=== PATIENT | male | born 1945 | race Caucasian/White ===

== ENCOUNTER 2017-02-24 10:38 | Outpatient (CLI) | payer MEDICARE ==
[2017-02-24 12:40] LABS: #Basophils 0.1 thou/uL (0.0-0.2); #Eosinphils 0.2 thou/uL (0.0-0.7); #Lymphocytes 1.6 thou/uL (1.20-3.40); #Monocytes 0.7 thou/uL (0.11-0.59); #Neutrophils 4.1 thou/uL (1.40-6.50); %Eosinophils 3.2 % (0.0-10.0); %Lymphocytes 24.2 % (21.0-51.0); %Monocytes 10.9 % (0.0-10.0); Hematocrit 48.3 % (42.0-52.0); Mean Platelet Volume 7.3 fL (7.4-10.4); Red Blood Cell (RBC) Count 4.85 mill/uL (4.70-6.10); White Blood Cell (WBC) Count 6.8 thou/uL (4.8-10.8)
[2017-02-24 12:45] LABS: PTT 26.8 SEC (22.9-36.1)
[2017-02-24 12:55] LABS: Prothrombin Time 13.4 SEC (12.0-14.7)
[2017-02-24 13:03] LABS: Anion Gap 12 mmol/L (10-20); BUN (Urea Nitrogen) 17 mg/dL (8.4-25.7); Calc. Creatinine Clearance 0 mL/min (70-130); Calcium 9.2 mg/dL (7.8-10.44); Carbon Dioxide 26 mmol/L (23-31); Chloride 107 mmol/L (98-107); Estimated GFR-MDRD 82
== END 2017-02-24 10:39 | disposition home or self-care (01) ==
LOC: LABBT 10:38
PROVIDERS: ATTEND Surgery
DX: Z01.818 Encounter for other preprocedural examination (principal); M54.16 Radiculopathy, lumbar region; M48.062 Spinal stenosis, lumbar region with neurogenic claudication
CPT/HCPCS: 80048; 85025; 85610; 85730; 93005; 93010

== ENCOUNTER 2017-02-27 11:09 | Day surgery (SDC) | payer MEDICARE ==
[2017-02-24 11:04] VITALS: BMI 36.2
[2017-02-27] MEDS ORDERED: Thrombin 5000 UNITS/5 ML VIAL ONE (12:15)
[2017-02-27] MEDS ORDERED: Bacitracin Zinc Ointment 30 gm TUBE ONE (12:15)
[2017-02-27] MEDS ORDERED: Sodium Chloride 0.9% 10 ML ONE (12:15)
[2017-02-27] MEDS ORDERED: CEFAZOLIN/Water 2 GM/20 ML SYRINGE ONE (12:48)
[2017-02-27] MEDS ORDERED: Fentanyl 100 MCG/2 ML VIAL ONE ×3 (12:51→17:11)
[2017-02-27] MEDS ORDERED: Promethazine HCl 25 MG/ML VIAL SLOW IVP PRN (16:02)
[2017-02-27] MEDS ORDERED: Meperidine HCl/PF 25 MG/ML VIAL SLOW IVP PRN (16:02)
[2017-02-27] MEDS ORDERED: Morphine Sulfate 2 MG/ML SYRINGE SLOW IVP PRN (16:02)
[2017-02-27] MEDS ORDERED: HYDROmorphone 2 MG/ML VIAL SLOW IVP PRN (16:02)
[2017-02-27] MEDS ORDERED: Dexamethasone 20 MG/5 ML VIAL ONE (16:45)
[2017-02-27] MEDS ORDERED: Succinylcholine Chloride 20 MG/ML 10 ml SYRINGE FS ONE (16:45)
[2017-02-27] MEDS ORDERED: Metoclopramide HCl 10 MG/2 ML VIAL ONE (16:45)
[2017-02-27] MEDS ORDERED: Lidocaine 1% PF 5 ML VIAL ONE (16:45)
[2017-02-27] MEDS ORDERED: ePHEDrine/0.9% NaCl/PF SYRINGE 50 mg/10 ml ONE (16:45)
[2017-02-27] MEDS ORDERED: PHENYLEPHRINE-NS 100 MCG/ML 10 ML SYRINGE ONE (16:45)
[2017-02-27] MEDS ORDERED: Glycopyrrolate 0.2 MG/ML 5 ML SYRINGE ONE (16:45)
[2017-02-27] MEDS ORDERED: Propofol 200 MG/20 ML VIAL ONE (16:45)
[2017-02-27] MEDS ORDERED: Ondansetron HCl/PF 4 MG/2 ML Vial ONE (16:45)
[2017-02-27] MEDS ORDERED: Ondansetron HCl/PF 4 MG/2 ML Vial IVP PRN (17:06)
[2017-02-27] MEDS ORDERED: Mag-Al 1200 mg/1200 mg/30 ML UDCUP PO PRN (17:06)
[2017-02-27] MEDS ORDERED: Bisacodyl 10 MG SUPP PR PRN (17:06)
[2017-02-27] MEDS ORDERED: Morphine 4 MG/ML VIAL SLOW IVP PRN (17:06)
[2017-02-27] MEDS ORDERED: Milk Of Magnesia 30 ML UDCUP PO PRN (17:06)
[2017-02-27] MEDS ORDERED: tiZANidine HCl 4 MG TAB PO PRN (17:06)
[2017-02-27] MEDS ORDERED: Acetaminophen 325 MG TAB PO PRN (17:06)
[2017-02-27] MEDS ORDERED: Fleet Enema 133 ML BOT PR PRN (17:06)
[2017-02-27] MEDS ORDERED: Acetaminophen/Codeine 30-300mg Tablet PO PRN (17:06)
[2017-02-27] MEDS ORDERED: HYDROcodone/Acetaminophen 7.5/325 mg Tablet PO PRN (17:06)
[2017-02-27] MEDS ORDERED: Promethazine HCl 25 MG/ML VIAL IM PRN (17:06)
[2017-02-27] MEDS ORDERED: diphenhydrAMINE 25 MG CAP PO PRN (17:08)
[2017-02-27] MEDS: Sodium Chloride 0.9% 1,000 ML IV SCH (19:10)
[2017-02-27] MEDS: guaiFENesin/DM ER PO SCH (20:55)
[2017-02-27] MEDS: Terazosin HCl 5 MG CAP PO SCH (20:55)
[2017-02-27] MEDS: CEFAZOLIN/Water 2 GM/20 ML SYRINGE SLOW IVP SCH (20:55)
[2017-02-27] MEDS ORDERED: CLINDAMYCIN PHOSPHATE 1% TOP SCH (21:00)
[2017-02-28] MEDS: CEFAZOLIN/Water 2 GM/20 ML SYRINGE SLOW IVP SCH (03:46)
[2017-02-28] MEDS: traMADol HCl 50 MG TAB PO PRN ×2 (03:55→10:59)
[2017-02-28] MEDS: Sodium Chloride 0.9% 1,000 ML IV SCH (04:49)
[2017-02-28] MEDS: guaiFENesin/DM ER PO SCH (08:05)
[2017-02-28] MEDS: Terazosin HCl 5 MG CAP PO SCH (08:05)
[2017-02-28 08:40] VITALS: BP 134/71; TEMP 98.9
[2017-02-28] MEDS ORDERED: Pravastatin Sodium 40 MG TAB PO SCH (09:00)
[2017-02-28] MEDS ORDERED: Metoprolol Tartrate 50 MG TAB PO SCH (09:00)
[2017-02-28] MEDS ORDERED: Ubidecarenone 50 MG CAP PO SCH (09:00)
[2017-02-28] MEDS ORDERED: Multivit, Therapeutic 1 TAB PO SCH (09:00)
--- NOTE | 2017-02-28 09:23 | PRG ---
DATE OF SERVICE: 02/28/2017 He is postoperative day 1 from L3-L4 synovial cystectomy and L4-S1 laminectomies, partial facetectomi es and foraminotomies with L4-S1 nerve root. He is doing very well, no evidence of leg pain. Good s trength in his lower extremities. He is mobilizing. We will plan to dismiss today. We went over alfredo th intra and postoperative issues.
--- NOTE | 2017-02-28 10:16 | OP ---
DATE OF PROCEDURE: 02/27/2017 OR: OR #12 WOUND TYPE: Type 1 wound. SURGEON: Bartolo Jeffery M.D. OPERATIONS MANAGER: Santiago Mccain PA-C PREPROCEDURE DIAGNOSIS: L3-S1 stenosis with low back and bilateral leg pain. POSTPROCEDURE DIAGNOSES: Multilevel lumbar stenosis with left-sided L3-L4 synovial cyst not quite ev ident on preoperative MRI. PROCEDURE: 1. L3-L4 synovial cystectomy for decompression at the L3-L4 segment. 2. L4-L5 laminectomy, partial facetectomy, and foraminotomies over the L4-L5 nerve roots. 3. L5-S1 laminectomy, partial facetectomy, and foraminotomies over the L5 and S1 nerve roots. DESCRIPTION OF PROCEDURE: After informed consent was obtained from the patient, the patient brought to OR 12. Proper patient pause and identification was carried out. He was positioned prone on the o perating table and all appropriate points were padded. We identified the L3 through S1 dorsal spines . A linear berenice was made over this region. This area was sterilely cleansed, prepared, and draped. Proper patient pause and identification was carried out. The wound was then opened with a combinati on of sharp, monopolar and blunt dissection, the L3-L4, L5-S1 dorsal spines and lamina were exposed. We then performed an L3-S1 laminectomy and at the L3-L4 segment identified a left-sided synovial cys t that was quite large and emanating off of the left L3-L4 facet joint. This was not entirely clear on a preoperative MRI, but in hindsight, perhaps more evident. I gently dissected the left L3-L4 syn ovial cyst which was quite compressive off of the dura. There was no spinal fluid leak. We achieved excellent decompression of the L3, L4 segment. We then turned our attention to the L4-S1 segments w ith laminectomies and partial facetectomies and foraminotomies over the L4, L5, and S1 nerve roots an d the common dural tube. We had excellent decompression of the common dural tube and the nerve roots . Hemostasis was maximized throughout. The wound was then copiously irrigated and closed in anatomi c layers following the sprinkling of vancomycin powder. The patient then emerged from anesthesia.
--- NOTE | 2017-04-03 14:36 | HP ---
HISTORY OF PRESENT ILLNESS: Mr. Arroyo is a very pleasant 72-year-old gentleman, multilevel lumbar s tenosis with low back and leg pain. He is to be admitted for lumbar decompression by Daxa Guthrie. Following his surgery, as long as he is medically and surgically stable, he will be dismissed. DIAGNOSIS: Low back and leg pain with lumbar stenosis.
== END 2017-02-28 11:58 | disposition home or self-care (01) ==
LOC: SDC 11:09 → SURG B 17:06 → SDC 02-28 11:58
PROVIDERS: ATTEND Surgery
PROC: 00NY0ZZ Release Lumbar Spinal Cord, Open Approach (ICD-10-PCS; principal; 2017-02-27)
DX: M48.062 Spinal stenosis, lumbar region with neurogenic claudication (principal); M54.16 Radiculopathy, lumbar region; I10 Essential (primary) hypertension; E78.5 Hyperlipidemia, unspecified; G43.909 Migraine, unspecified, not intractable, without status migrainosus; M19.90 Unspecified osteoarthritis, unspecified site; E66.9 Obesity, unspecified; Z68.36 Body mass index [BMI] 36.0-36.9, adult; Z98.890 Other specified postprocedural states; Z87.891 Personal history of nicotine dependence
CPT/HCPCS: 76001; 96374; A4216; J0131; J1100; J1170; J2001; J2405; J2704; J2765; J3010; J3370; J3490

== ENCOUNTER 2020-09-08 12:42 | Outpatient (CLI) | payer MEDICARE | END 2020-09-08 12:43 | disposition home or self-care (01) | LOC: TBSIIMAG 12:42 | PROVIDERS: ATTEND Surgery | DX: M47.26 Other spondylosis with radiculopathy, lumbar region (principal); Z98.890 Other specified postprocedural states | CPT/HCPCS: 72120; 72148 ==